=== PATIENT | male | born 1960 | race Caucasian/White ===

== ENCOUNTER 2019-05-09 19:46 | Emergency (ER) | payer BC ==
[~2019-05-09] VITALS: Ht 177.8 cm; Wt 68.2 kg
[2019-05-09] MEDS ORDERED: metoclopramide 5 mg/ml inj IV ONE (20:15)
[2019-05-09] MEDS ORDERED: diphenhydrAMINE 50 mg/ml inj IV ONE (20:15)
[2019-05-09] MEDS ORDERED: LORazepam 2 mg/ml vial IV ONE (20:15)
[2019-05-09] MEDS ORDERED: ketorolac trometh. 30mg/ml inj. IV ONE (20:15)
[2019-05-09] MEDS ORDERED: normal saline 1000ML IV soln IVB ONE ×2 (20:15)
[2019-05-09 20:18] LABS: BASOPHILS # (AUTO) 0.1 X10'3 (0-0.2); BASOPHILS % (AUTO) 0.9 % (0-1); EOSINOPHILS % (AUTO) 0.2 % (0-6); HEMATOCRIT 46.4 % (42.0-52.0); LYMPHOCYTES # (AUTO) 1.2 X10'3 (1.1-4.8); LYMPHOCYTES % (AUTO) 16.5 % (21-51); MEAN CORPUSCULAR HGB CONC 34.6 g/dL (33.0-36.5); MEAN CORPUSCULAR VOLUME 86.8 FL (78-98); MEAN PLATELET VOLUME 8.6 FL (7.4-10.4); MONOCYTES # (AUTO) 0.6 X10'3 (0-0.9); MONOCYTES % (AUTO) 7.5 % (2-12); NEUTROPHILS # (AUTO) 5.6 X10'3 (1.8-7.7); NEUTROPHILS % (AUTO) 74.9 % (42-75); PLATELET COUNT 171 X10'3 (140-440); RED BLOOD COUNT 5.34 X10'6 (4.70-6.10); RED CELL DISTRIBUTION WIDTH 13.1 % (11.5-14.5); WHITE BLOOD COUNT 7.5 X10'3 (4.5-11.0)
[2019-05-09] MEDS ORDERED: glycopyrrolate 0.2mg/ml inj IV ONE (20:20)
[2019-05-09 20:30] LABS: ALANINE AMINOTRANSFERASE 31 U/L (12-78); ALBUMIN 4.2 G/DL (3.4-5.0); ALBUMIN/GLOBULIN RATIO 1.2 (1.1-1.5); ALKALINE PHOSPHATASE 80 IU/L (46-116); ANION GAP 11 (8-16); ASPARTATE AMINO TRANSFERASE 17 U/L (10-37); BILIRUBIN,TOTAL 2.3 MG/DL (0.1-1.0); BLOOD UREA NITROGEN 16 MG/DL (7-18); BUN/CREATININE RATIO 12.2 (5.4-32.0); CALCIUM 9.3 MG/DL (8.5-10.1); CHLORIDE 103 MMOL/L (99-107); CREATININE 1.31 MG/DL (0.60-1.10); GLUCOSE 109 MG/DL (70-104); POTASSIUM 3.6 MMOL/L (3.5-5.1); SODIUM 138 MMOL/L (135-145); TOTAL CARBON DIOXIDE 24.3 MMOL/L (24-32); TOTAL PROTEIN 7.8 G/DL (6.4-8.2); eGFR 56 ML/MIN
[2019-05-09 20:41] LABS: LIPASE 85 U/L (73-393)
--- NOTE | 2019-05-09 20:59 | NUR ---
PT HAD GOOD PAIN RELIEF FROM MEDICATIONS. HE IS SLEEPING UPON ENTERING THE ROOM. 2ND LITER IV NS INFUSING NOW.
[2019-05-09] MEDS ORDERED: ONDA4TAB12 PO (21:47)
[2019-05-09] MEDS ORDERED: DICY10CA88 PO (21:47)
[2019-05-09 22:33] LABS: CLARITY,URINE CLEAR (Clear); COLOR,URINE YELLOW (Yellow); GLUCOSE, URINE NEGATIVE (Neg); KETONES,URINE >=80 mg/dl (Neg); LEUKOCYTE ESTERASE ,URINE NEGATIVE (Neg); NITRITES, URINE NEGATIVE (Neg); OCCULT BLOOD,URINE NEGATIVE (Neg); PROTEIN,URINE TRACE mg/dl (Neg); UROBILINOGEN,URINE 0.2 E.U/dL (0.2-1.0)
[2019-05-09 22:37] LABS: UA COLLECTION TYPE VOIDED
[2019-05-09 22:39] LABS: BACTERIA,URINE FEW /HPF (Neg); MUCUS STRANDS MANY /LPF (Neg); RBC,URINE NONE SEEN /HPF (0-2); SQUAMOUS EPITHELIAL CELL,UR FEW /LPF (FEW); WBC,URINE 0-4 /HPF (0-4)
[2019-05-09 23:00] VITALS: BP 128/70
== END 2019-05-09 23:02 | disposition home or self-care (01) ==
LOC: ER 19:47
DX: R11.2 Nausea with vomiting, unspecified (principal); R19.7 Diarrhea, unspecified; R50.9 Fever, unspecified; R10.30 Lower abdominal pain, unspecified
CPT/HCPCS: 36415; 74176; 80053; 81001; 83690; 85025; 85610; 96361; 96374; 96375; 99284; J1200; J1885; J2060; J2765; J7030; J3490